=== PATIENT | female | born 1960 | race Caucasian/White ===

== ENCOUNTER 2017-07-16 10:55 | Emergency (ER) | payer BC ==
[~2017-07-16] VITALS: Ht 162.6 cm; Wt 110.8 kg
[2017-07-16 14:30] LABS: HEMATOCRIT 39.4 % (36.0-46.0); HEMOGLOBIN 13.2 G/DL (11.9-15.5); MCH 28.2 PG (29.0-34.0); MCHC 33.5 G/DL (30.0-36.0); MCV 84.2 FL (83-99); PLATELET COUNT 348 K/uL (156-360); RBC DIS.WIDTH-CV 12.2 % (11.8-14.6); RBC DIS.WIDTH-SD 36.7 % (39-53); RED BLOOD COUNT 4.68 M/uL (3.80-5.20); WHITE BLOOD COUNT 9.4 K/uL (4.1-10.2)
[2017-07-16 14:39] LABS: CHLORIDE 109 mEq/L (99-109); POTASSIUM 3.6 mEq/L (3.7-5.4); SODIUM 144 mEq/L (136-147)
[2017-07-16 14:41] LABS: GLUCOSE 98 mg/dL (70-99)
[2017-07-16 14:45] LABS: CREATININE 0.8 mg/dL (0.6-1.3); GFR ESTIMATE (CALCULATED) > 59 mL/min/
[2017-07-16 14:46] LABS: UREA NITROGEN (BUN) 16 mg/dL (9-23)
[2017-07-16 14:52] LABS: TROP-I INTERPRETATION NEGATIVE; TROPONIN-I < 0.01 ng/mL (0.0-0.30)
[2017-07-16 17:08] VITALS: BP 138/95
== END 2017-07-16 17:09 | disposition home or self-care (01) ==
LOC: RAD 10:55 → EME 10:55 → EDSTATUS 11:00 → RAD 11:00 → EME 17:09
PROVIDERS: Family Medicine
DX: M94.0 Chondrocostal junction syndrome [Tietze] (principal); I71.4 Abdominal aortic aneurysm, without rupture; R06.02 Shortness of breath
CPT/HCPCS: 71260; 71275; 80048; 84484; 85027; 93005; 99281; 99285